=== PATIENT | female | born 1945 | race Caucasian/White ===

== ENCOUNTER 2020-04-07 14:22 | Inpatient (IN) | payer OTHER ==
--- OUTSIDE RECORDS SUMMARY | 2020-04-07 15:10 | XMS REPORT | Clinical Summary ---
:1945 Author Organization [facility] Address [address] [place] [address] Care Team Providers Name Role Phone Terese Zhou MD Primary Care Provider oDris Terrazas Corn Husker Allergies No Known Allergies Medications Medication Sig Dispensed Refills Start Date End Date Status cholecalciferol (VITAMIN Take by mouth 0 Active D3) 400 unit Tab tablet daily. metFORMIN (GLUCOPHAGE) Take 1,000 mg by 0 Active 500 MG tablet mouth daily with breakfast. furosemide (LASIX) 40 MG Take 40 mg by 0 Active tablet mouth daily. fLUoxetine (PROZAC) 20 Take 20 mg by 0 Active MG capsule mouth daily. amLODIPine (NORVASC) 10 Take 10 mg by 0 Active MG tablet mouth daily. benazepril (LOTENSIN) 40 Take 40 mg by 0 Active MG tablet mouth daily. levothyroxine Take 125 mcg by 0 Active (SYNTHROID, LEVOTHROID) mouth Every 125 MCG tablet morning on an empty stomach. spironolactone Take 25 mg by 0 A ctive (ALDACTONE) 25 MG tablet mouth daily. Active Problems Problem Noted Date Pneumonia due to other gram-negative bacteria 11/08/19 18 Social History Tobacco Use Types Packs/Day Years Used Date Current Every Day Smoker 1 50 Smokeless Tobacco: Current User Alcohol Use Drinks/Week oz/Week Comments No Sex Assigned at Date Recorded Not on file Last Filed Vital Signs Not on file Plan of Treatment Not on file Results Not on fileafter 04/07/2019 Insurance Payer Benefit Plan / Subscriber ID Effective Dates Phone Addre ss Type Group [employer] HMO [id number] 2008-Lashaun Ruiz Contracted ALL t Advance Directives For more information, please contact: [phone] Code Status Date Activated Date Inactivated Comments Full Code 11/07/2017 4:37 PM 11/10/2017 6:21 PM This code status was determined by: Patient
--- OUTSIDE RECORDS SUMMARY | 2020-04-07 15:11 | XMS REPORT | Continuity of Care Document ---
:1945 Author Organization [facility] t Address [address] [place] [address] Care Team Providers Name Role Phone Bridget Unger MD Primary Care Physician BRIDGET UNGER Attending Clinician Unavailable BRIDGET UNGER Admitting Clinician Unavailable Problems Condition Condition Condition Status Onset Resolution Last Treating Co mments Source Name Details Category Date Date Treatment Clinician Date Pneumonia Pneumonia Disease Active [facility] St due to due to 11[facility]07 [facility] - other other 00:00: Medical gram-negat gram-negat 00 Ce nter von von bacteria bacteria Allergies, Adverse Reactions, Alerts This patient has no known allergies or adverse reactions. Social History Social Habit Start Date Stop Date Quantity Comments Source Sex Assigned At [facility] Cigarettes smoked 2017-11-07 2017-11-[address] [facility] St [place] - current (pack per 00:00:00 00:00:00 [facility] Center day) - Reported Cigarette 2017-11-07 2017-11-[address] [facility] St [place] - pack-years 00:00:00 00:00:[address] [facility] Tobacco use and 2017-11-07 2017-11-[address] [facility] St [place] - exposure 00:00:00 00:00:00 [facility] Center Alcohol intake 2017-11-07 2017-11-[address] [facility] St [place] - 00:00:00 00:00:00 non-drinker of Medical Ce nter alcohol (finding) Smoking Status Start Date Stop Date Source Current every day smoker 2017-11-07 00:00:[address] [facility] Medications Ordered Filled Start Stop Current Ordering Indication Dosage Frequency Signature Comments Components Source Medication Medication Date Date Medication? Clinician (SIG) Name Name cholecalcif 0 Yes QD Take by [facility] 5-17 [facility] - (VITAMIN 16:21: daily. Medical D3) 400 44 Center unit Tab tablet metFORMIN Yes 1000mg Take 1,[address] (GLUCOPHAGE 5-17 mg by [facility] - ) 500 MG 16:21: mouth Medical tablet 44 daily with Center breakfast. furosemide 20180 Yes 40mg QD Take [address] (LASIX) 40 5-17 by mouth [facility] - MG tablet 16:21: daily. Medica l 44 Center fLUoxetine Yes 20mg QD Take [address] (PROZAC) 20 5-17 by mouth [facility] - MG capsule 16:21: daily. Medic al 44 Center amLODIPine Yes 10mg QD Take [address] (NORVASC) 5-17 by mouth [facility] - 10 MG 16:21: daily. Medical tablet 44 Center benazepril Yes 40mg QD Take [address] (LOTENSIN) 5-17 by mouth [facility] - 40 MG 16:21: daily. Medical tablet 44 Center levothyroxi 0 Yes 125ug Take [address] ne 5-17 mcg by [facility] - (SYNTHROID, 16:21: mouth Medic al LEVOTHROID) 44 Every Center 125 MCG morning on tablet an empty stomach. spironolact Yes 25mg QD Take [address] one 5-17 by mouth [facility] - (ALDACTONE) 16:21: daily. Medi kamron 25 MG 44 Center tablet Procedures This patient has no known procedures. Results Test Description Test Time Test Comments Results Result Comments Source BLOOD CULTURE 2017-11-13 01:00:00 Test Item Value Reference Range Interpretation Comme nts CULTURE (BEAKER) (test code = 1095) No growth in 5 days BLOOD [id number] 19:00:00 Test Item Value Reference Range Interpretation Comments CULTURE (BEAKER) (test No growth in 5 days code = 1095) CT, [id number] 16:07:00FINAL REPORT DOSE REDUCTION: The examination was performed according to departmental dose- optimization program which includes automated exposure control, adjustment of the mA and/or kV according to patient size and/or use of iterative reconstruction technique. TECHNIQUE: Adrenalprotocol CT of the abdomen with and without intravenous contrast. Pelvis CT with contrast. COMPARISON: None Discussion: There is a trace right pleural effusion, and a small left pleural effusion. There is lower lobe consolidation/atelectasis. A subcentimeter hypodensity left hepatic lobe is too smallto characterize. No suspicious liver lesion. Spleen and pancreas appear unremarkable. Status post cholecystectomy. No biliary ductal dilatation. There is a 5.5 x 6.0 cm left renal cyst. There are additional bilateral small renal hypodensities, some are simple cysts, others are too small to characterize. There is a right adrenal gland mass measuring 1.6 x 3.4 cm, and the left adrenal gland mass measuring 3.8 x 2.6 cm. Both demonstrate density measurements less than 0 on the precontrast images. Postco ntrast there is enhancement and on the delayed 10 minute images there is washout. Appearance is mostconsistent with benign adenomata. There is colonic diverticulosis. No findings of diverticulitis. Otherwise small bowel and colon appear unremarkable. The appendix is not well visualized. However thereis no inflammatory stranding or fluid collection in the right lower quadrant to suggest the presence of appendicitis. No free fluid or abnormal lymphadenopathy. Aorta and IVC are normal in caliber. Vascular calcifications are seen. There is a fat-containing focal hernia. The bladder, uterus and bilateral adnexa are unremarkable. There is mild soft tissue anasarca. No acute skeletal abnormality. Degenerative changes along the spine seen. IMPRESSION: 1. Bilateral adrenal gland masses, CT characteristics are most consistent with benign adenomata. 2. Left renal cyst. Additional bilateral renal hypodensities, some are cysts others are too small to characterize. Hypodensity left hepatic lobe, too small to characterize. 3. Colonic diverticulosis without findings of diverticulitis. 4. Small left pleural effusion, and trace right pleural effusion. Bilateral lower lobe atelectasis. Mild soft tissue anasarca. Signed: Jean-Claude Harvey MDReport Verified Date/Time: 11/10/2017 16:07:15 Reading Location: [facility] Radiology Reading Room RAD, CHEST, 1 VIEW, NON [id number] 13:13:00Reason for exam:->PNEUMONIAShould this be performed at the bedside?->YesFINAL REPORT TECHNIQUE: Single view of the chest. COMPARISON: 11/07/2017 FINDINGS: The cardiac silhouette is prominent. Aortic calcifications are seen. Blunting of the left costophrenic sulcus may be due to trace pleural effusion. Otherwise lungs are clear. No acute skeletal abnormality. Soft tissues appear unremarkable. Signed: Jean-Claude Harvey MDReport Verified Date/Time: 11/10/2017 13:13:21 Reading Location: [facility] Radiology Reading Room POCT- GLUCOSE [id number] 12:39:00 Test Item Value Reference Range Interpretation Comments POC-GLUCOSE METER 174 mg/dL 70-110 H TESTED AT [address] ([facility]) (test code [facility] [place] = 1538) [id number] BASIC METABOLIC [id number] 12:16:00 Test Item Value Reference Range Interpretation Comments SODIUM (BEAKER) 140 meq/L 135-148 (test code = 381) POTASSIUM (BEAKER) 4.9 meq/L 3.6-5.5 Specimen slightly (test code = 379) hemolyzed CHLORIDE (BEAKER) 104 meq/L 98-106 (test code = 382) CO2 (BEAKER) (test 28 meq/L 20-29 code = 355) BLOOD UREA NITROGEN 24 mg/dL 10-26 (BEAKER) (test code = 354) CREATININE (BEAKER) 0.99 mg/dL 0.50-1.20 Specimen slightly (test code = 358) hemolyzed GLUCOSE RANDOM 172 mg/dL 70-110 H (BEAKER) (test code = 652) CALCIUM (BEAKER) 9.3 mg/dL 8.5-10.5 (test code = 697) EGFR (BEAKER) (test 55 mL/min/1.73 ESTIMA BANDAR GFR IS code = 1092) sq m NOT ACCURATE CREATININE CLEARANCE IN PREDICTING GLOMERULAR FILTRATION RATE . ESTIMATED GFR I S NOT APPLICABLE FOR DIALYSIS PATIEN TS. [id number] 12:10:00 Test Item Value Reference Range Interpretation Comments MAGNESIUM (BEAKER) 2.1 mg/dL 1.5-3.0 Specimen slightly (test code = 627) hemolyzed CBC W/PLT COUNT & AUTO [id number] 12:06:00 Test Item Value Reference Range Interpretation Comments WHITE BLOOD CELL COUNT (BEAKER) 12.3 K/ L 4.0-10.0 H (test code = 775) RED BLOOD CELL COUNT (BEAKER) 4.42 M/ L 4.00-5.00 (test code = 761) HEMOGLOBIN (BEAKER) (test code = 13.3 GM/DL 12.0-15.0 410) HEMATOCRIT (BEAKER) (test code = 41.5 % 36.0-45.0 411) MEAN CORPUSCULAR VOLUME (BEAKER) 93.9 fL 82.0-99.0 (test code = 753) MEAN CORPUSCULAR HEMOGLOBIN 30.1 pg 27.0-33.0 (BEAKER) (test code = 751) MEAN CORPUSCULAR HEMOGLOBIN CONC 32.0 GM/DL 32.0-36.0 (BEAKER) (test code = 752) RED CELL DISTRIBUTION WIDTH 15.1 % 10.3-14.2 H (BEAKER) (test code = 412) PLATELET COUNT (BEAKER) (test 313 K/CU MM 150-430 code = 756) MEAN PLATELET VOLUME (BEAKER) 9.0 fL 6.5-10.5 (test code = 754) NUCLEATED RED BLOOD CELLS 0 /100 WBC 0-0 (BEAKER) (test code = 413) NEUTROPHILS RELATIVE PERCENT 91 % (BEAKER) (test code = 429) LYMPHOCYTES RELATIVE PERCENT 5 % (BEAKER) (test code = 430) MONOCYTES RELATIVE PERCENT 4 % (BEAKER) (test code = 431) EOSINOPHILS RELATIVE PERCENT 0 % (BEAKER) (test code = 432) BASOPHILS RELATIVE PERCENT 0 % (BEAKER) (test code = 437) NEUTROPHILS ABSOLUTE COUNT 11.20 K/ L 1.80-8.00 H (BEAKER) (test code = 670) LYMPHOCYTES ABSOLUTE COUNT 0.60 K/ L 1.48-4.50 L (BEAKER) (test code = 414) MONOCYTES ABSOLUTE COUNT (BEAKER) 0.50 K/ L 0.00-1.30 (test code = 415) EOSINOPHILS ABSOLUTE COUNT 0.00 K/ L 0.00-0.50 (BEAKER) (test code = 416) BASOPHILS ABSOLUTE COUNT (BEAKER) 0.00 K/ L 0.00-0.20 (test code = 417) SPUTUM CULTURE + GRAM [id number] 09:29:00 Test Item Value Reference Interpretation Comments Range CULTURE (BEAKER) STAPHYLOCOCCUS A <1+ Staph ylococcus (test code = 1095) AUREUS aureus Ciprofloxacin (test S code = 7) Clindamycin (test S code = 10) Daptomycin (test code S = 59) Erythromycin (test S code = 4) Gentamicin (test code S = 18) Levofloxacin (test S code = 22) Linezolid (test code S = 40) Moxifloxacin (test S code = 36) Nitrofurantoin (test S code = 23) Oxacillin (test code S = 14) Rifampin (test code = S 43) Tetracycline (test S code = 2) Tigecycline (test S code = 133) Trimethoprim + S Sulfamethoxazole (test code = 47) Vancomycin (test code S = 13) GRAM STAIN RESULT 1+ White blood (BEAKER) (test code = cells seen 1123) GRAM STAIN RESULT <1+ epithelial (BEAKER) (test code = cells 454738) GRAM STAIN RESULT <1+ gram positive (BEAKER) (test code = cocci 496462) GRAM STAIN RESULT <1+ gram positive (BEAKER) (test code = rods 013333) 4+ Normal respiratory clif presentPOCT-GLUCOSE [id number] 06:01:00 Test Item Value Reference Range Interpretation Comments POC-GLUCOSE METER 139 mg/dL 70-110 H TEST[facility] AT [address] [facility] (test code [facility] [place] = 1538) [id number] POCT-GLUCOSE [id number] 20:38:00 Test Item Value Reference Range Interpretation Comments POC-GLUCOSE METER 275 mg/dL 70-110 H TEST[facility] AT [address] [facility] (test code [facility] [place] = 1538) [id number] POCT-GLUCOSE [id number] 16:32:00 Test Item Value Reference Range Interpretation Comments POC-GLUCOSE METER 220 mg/dL 70-110 H TESTED AT [address] ([facility]) (test code [facility] [place] = 1538) [id number] POCT-GLUCOSE [id number] 12:24:00 Test Item Value Reference Range Interpretation Comments POC-GLUCOSE METER 318 mg/dL 70-110 H TESTED AT [address] ([facility]) (test code [facility] [place] = 1538) [id number] POCT-GLUCOSE [id number] 07:27:00 Test Item Value Reference Range Interpretation Comments POC-GLUCOSE METER 169 mg/dL 70-110 H TESTED AT [address] ([facility]) (test code [facility] [place] = 1538) [id number] POCT-GLUCOSE [id number] 07:27:00 Test Item Value Reference Range Interpretation Comments POC-GLUCOSE METER 167 mg/dL 70-110 H TESTED AT [address] ([facility]) (test code [facility] [place] = 1538) [id number] POCT-GLUCOSE [id number] 22:49:00 Test Item Value Reference Range Interpretation Comments POC-GLUCOSE METER 274 mg/dL 70-110 H TESTED AT [address] ([facility]) (test code [facility] [place] = 1538) [id number] POCT-GLUCOSE [id number] 17:18:00 Test Item Value Reference Range Interpretation Comments POC-GLUCOSE METER 237 mg/dL 70-110 H TESTED AT [address] ([facility]) (test code [facility] [place] = 1538) [address] POCT-GLUCOSE [id number] 12:36:00 Test Item Value Reference Range Interpretation Comments POC-GLUCOSE METER 258 mg/dL 70-110 H TESTED AT [address] ([facility]) (test code [facility] [place] = 1538) [id number] TROPONIN [id number] 06:00:00 Test Item Value Reference Range Interpretation Comments TROPONIN I ([facility]) (test code = 397) < ng/mL 0.00-0.15 Troponin I (TnI) levels must be interpreted in the context of the presenting symptoms and the clinical findings. Elevated TnI levels indicate myocardial damage, but are not specific for ischemic heart disease. Elevated TnI levels are seen in patients with other cardiac conditions (including myocarditis and congestive heart failure), and slight TnI elevations occur in patients with other conditions, including sepsis, renal failure, acidosis, acute neurological disease, and persistent tachyarrhythmia.POCT-GLUCOSE [id number] 05:59:00 Test Item Value Reference Range Interpretation Comments POC-GLUCOSE METER 190 mg/dL 70-110 H TESTED AT [address] (BEAKER) (test code [facility] [place] = 1538) [id number] COMPREHENSIVE METABOLIC [id number] 05:51:00 Test Item Value Reference Range Interpretation Comments TOTAL PROTEIN 6.7 gm/dL 6.0-8.5 (BEAKER) (test code = 770) ALBUMIN (BEAKER) 3.4 g/dL 3.5-5.0 L (test code = 1145) ALKALINE PHOSPHATASE 70 U/L 30-115 (BEAKER) (test code = 346) BILIRUBIN TOTAL 0.2 mg/dL 0.1-1.2 (BEAKER) (test code = 377) SODIUM (BEAKER) (test 139 meq/L 135-148 code = 381) POTASSIUM (BEAKER) 5.4 meq/L 3.6-5.5 (test code = 379) CHLORIDE (BEAKER) 99 meq/L 98-106 (test code = 382) CO2 (BEAKER) (test 31 meq/L 20-29 H code = 355) BLOOD UREA NITROGEN 27 mg/dL 10-26 H (BEAKER) (test code = 354) CREATININE (BEAKER) 1.05 mg/dL 0.50-1.20 (test code = 358) GLUCOSE RANDOM 183 mg/dL 70-110 H (BEAKER) (test code = 652) CALCIUM (BEAKER) 9.3 mg/dL 8.5-10.5 (test code = 697) AST (SGOT) (BEAKER) 14 U/L 5-40 (test code = 353) ALT (SGPT) (BEAKER) 12 U/L 5-50 (test code = 347) EGFR (BEAKER) (test 52 mL/min/1.73 ESTIMA BANDAR GFR IS code = 1092) sq m NOT ACCURATE CREATININE CLEARANCE IN PREDICTING GLOMERULAR FILTRATION RATE . ESTIMATED GFR I S NOT APPLICABLE FOR DIALYSIS PATIEN TS. [id number] 05:42:00 Test Item Value Reference Range Interpretation Comments MAGNESIUM (BEAKER) (test code = 1.9 mg/dL 1.5-3.0 627) CBC W/PLT COUNT & AUTO [id number] 05:36:00 Test Item Value Reference Range Interpretation Comments WHITE BLOOD CELL COUNT (BEAKER) 9.6 K/ L 4.0-10.0 (test code = 775) RED BLOOD CELL COUNT (BEAKER) 4.08 M/ L 4.00-5.00 (test code = 761) HEMOGLOBIN (BEAKER) (test code = 12.4 GM/DL 12.0-15.0 410) HEMATOCRIT (BEAKER) (test code = 38.6 % 36.0-45.0 411) MEAN CORPUSCULAR VOLUME (BEAKER) 94.6 fL 82.0-99.0 (test code = 753) MEAN CORPUSCULAR HEMOGLOBIN 30.4 pg 27.0-33.0 (BEAKER) (test code = 751) MEAN CORPUSCULAR HEMOGLOBIN CONC 32.1 GM/DL 32.0-36.0 (BEAKER) (test code = 752) RED CELL DISTRIBUTION WIDTH 14.2 % 10.3-14.2 (BEAKER) (test code = 412) PLATELET COUNT (BEAKER) (test 279 K/CU MM 150-430 code = 756) MEAN PLATELET VOLUME (BEAKER) 9.5 fL 6.5-10.5 (test code = 754) NUCLEATED RED BLOOD CELLS 0 /100 WBC 0-0 (BEAKER) (test code = 413) NEUTROPHILS RELATIVE PERCENT 90 % (BEAKER) (test code = 429) LYMPHOCYTES RELATIVE PERCENT 10 % (BEAKER) (test code = 430) MONOCYTES RELATIVE PERCENT 1 % (BEAKER) (test code = 431) EOSINOPHILS RELATIVE PERCENT 0 % (BEAKER) (test code = 432) BASOPHILS RELATIVE PERCENT 0 % (BEAKER) (test code = 437) NEUTROPHILS ABSOLUTE COUNT 8.60 K/ L 1.80-8.00 H (BEAKER) (test code = 670) LYMPHOCYTES ABSOLUTE COUNT 0.90 K/ L 1.48-4.50 L (BEAKER) (test code = 414) MONOCYTES ABSOLUTE COUNT (BEAKER) 0.10 K/ L 0.00-1.30 (test code = 415) EOSINOPHILS ABSOLUTE COUNT 0.00 K/ L 0.00-0.50 (BEAKER) (test code = 416) BASOPHILS ABSOLUTE COUNT ([facility]) 0.00 K/ L 0.00-0.20 (test code = 417) POCT-GLUCOSE [id number] 20:41:00 Test Item Value Reference Range Interpretation Comments POC-GLUCOSE METER 216 mg/dL 70-110 H TESTED AT [facility] ([facility]) (test code [facility] [place] = 1538) [id number] POCT-GLUCOSE [id number] 19:07:00 Test Item Value Reference Range Interpretation Comments POC-GLUCOSE METER 121 mg/dL 70-110 H TESTED AT [facility] [address] ([facility]) (test code [facility] [place] = 1538) [id number] TROPONIN [id number] 18:39:00 Test Item Value Reference Range Interpretation Comments TROPONIN I ([facility]) (test code = 397) < ng/mL 0.00-0.15 Troponin I (TnI) levels must be interpreted in the context of the presenting symptoms and the clinical findings. Elevated TnI levels indicate myocardial damage, but are not specific for ischemic heart disease. Elevated TnI levels are seen in patients with other cardiac conditions (including myocarditis and congestive heart failure), and slight TnI elevations occur in patients with other conditions, including sepsis, renal failure, acidosis, acute neurological disease, and persistent tachyarrhythmia.LIPID [id number] 18:29:00 Test Item Value Reference Range Interpretation Comments TRIGLYCERIDES (BEAKER) (test code = 108 mg/dL 540) CHOLESTEROL (AKER) (test code = 198 mg/dL 631) HDL CHOLESTEROL (AKER) (test code 51 mg/dL = 976) LDL CHOLESTEROL CALCULATED ([facility]) 125 mg/dL (test code = 633) Triglyceride Reference Range: Low Risk <150 Borderline 150-199 High Risk 200-499 Very High Risk >=500Cholesterol Reference Range: Low Risk <200 Borderline 200-239 High Risk >240HDL Cholesterol Reference Range: Low Risk >=60 High Risk <40LDL Cholesterol Reference Range: Optimal <100 Near Optimal 100-129 Borderline 130-159 High 160-189 Very High >=190COMPREHENSIVE METABOLIC [id number] 18:22:00 Test Item Value Reference Range Interpretation Comments TOTAL PROTEIN 7.7 gm/dL 6.0-8.5 (BEAKER) (test code = 770) ALBUMIN (BEAKER) 3.8 g/dL 3.5-5.0 (test code = 1145) ALKALINE PHOSPHATASE 82 U/L 30-115 (BEAKER) (test code = 346) BILIRUBIN TOTAL 0.3 mg/dL 0.1-1.2 (BEAKER) (test code = 377) SODIUM (BEAKER) (test 140 meq/L 135-148 code = 381) POTASSIUM (BEAKER) 5.0 meq/L 3.6-5.5 (test code = 379) CHLORIDE (BEAKER) 97 meq/L 98-106 L (test code = 382) CO2 (BEAKER) (test 33 meq/L 20-29 H code = 355) BLOOD UREA NITROGEN 27 mg/dL 10-26 H (BEAKER) (test code = 354) CREATININE (BEAKER) 1.14 mg/dL 0.50-1.20 (test code = 358) GLUCOSE RANDOM 98 mg/dL 70-110 (BEAKER) (test code = 652) CALCIUM (BEAKER) 9.8 mg/dL 8.5-10.5 (test code = 697) AST (SGOT) (BEAKER) 12 U/L 5-40 (test code = 353) ALT (SGPT) (BEAKER) 9 U/L 5-50 (test code = 347) EGFR (BEAKER) (test 47 mL/min/1.73 ESTIMA BANDAR GFR IS code = 1092) sq m NOT ACCURATE CREATININE CLEARANCE IN PREDICTING GLOMERULAR FILTRATION RATE . ESTIMATED GFR I S NOT APPLICABLE FOR DIALYSIS PATIEN TS. [id number] 18:14:00 Test Item Value Reference Range Interpretation Comments MAGNESIUM (BEAKER) (test code = 2.0 mg/dL 1.5-3.0 627) URINALYSIS W/ [id number] 18:13:00 Test Item Value Reference Range Interpretation Comments COLOR (BEAKER) (test code = 470) Yellow CLARITY (BEAKER) (test code = 469) Clear SPECIFIC GRAVITY UA (BEAKER) (test 1.015 1.001-1.035 code = 468) PH UA (BEAKER) (test code = 467) 5.5 5.0-8.0 PROTEIN UA (BEAKER) (test code = Negative Negative 464) GLUCOSE UA (BEAKER) (test code = Negative Negative 365) KETONES UA (BEAKER) (test code = Negative Negative 371) BILIRUBIN UA (BEAKER) (test code = Negative Negative 462) BLOOD UA (BEAKER) (test code = Trace Negative A 461) NITRITE UA (BEAKER) (test code = Negative Negative 465) LEUKOCYTE ESTERASE UA (BEAKER) Trace Negative A (test code = 466) UROBILINOGEN UA (BEAKER) (test 0.2 mg/dL 0.2-1.0 code = 463) BACTERIA (BEAKER) (test code = Occasional 517) RBC UA-MANUAL (BEAKER) (test code 5-10 /HPF = 1659) WBC UA-MANUAL (BEAKER) (test code 10-20 /HPF = 1661) SQUAMOUS EPITHELIAL MANUAL 5-10 /HPF (BEAKER) (test code = 1663) SOURCE(BEAKER) (test code = 2795) HEMOGLOBIN [id number] 18:09:00 Test Item Value Reference Range Interpretation Comments HEMOGLOBIN A1C (BEAKER) (test code = 5.5 % 4.3-6.1 368) CBC W/PLT COUNT & AUTO [id number] 18:00:00 Test Item Value Reference Range Interpretation Comments WHITE BLOOD CELL COUNT (BEAKER) 10.7 K/ L 4.0-10.0 H (test code = 775) RED BLOOD CELL COUNT (BEAKER) 4.41 M/ L 4.00-5.00 (test code = 761) HEMOGLOBIN (BEAKER) (test code = 13.2 GM/DL 12.0-15.0 410) HEMATOCRIT (BEAKER) (test code = 41.5 % 36.0-45.0 411) MEAN CORPUSCULAR VOLUME (BEAKER) 94.2 fL 82.0-99.0 (test code = 753) MEAN CORPUSCULAR HEMOGLOBIN 30.0 pg 27.0-33.0 (BEAKER) (test code = 751) MEAN CORPUSCULAR HEMOGLOBIN CONC 31.9 GM/DL 32.0-36.0 L (BEAKER) (test code = 752) RED CELL DISTRIBUTION WIDTH 14.1 % 10.3-14.2 (BEAKER) (test code = 412) PLATELET COUNT (BEAKER) (test 290 K/CU MM 150-430 code = 756) MEAN PLATELET VOLUME (BEAKER) 9.1 fL 6.5-10.5 (test code = 754) NUCLEATED RED BLOOD CELLS 0 /100 WBC 0-0 (BEAKER) (test code = 413) NEUTROPHILS RELATIVE PERCENT 85 % (BEAKER) (test code = 429) LYMPHOCYTES RELATIVE PERCENT 12 % (BEAKER) (test code = 430) MONOCYTES RELATIVE PERCENT 3 % (BEAKER) (test code = 431) EOSINOPHILS RELATIVE PERCENT 0 % (BEAKER) (test code = 432) BASOPHILS RELATIVE PERCENT 0 % (BEAKER) (test code = 437) NEUTROPHILS ABSOLUTE COUNT 9.10 K/ L 1.80-8.00 H (BEAKER) (test code = 670) LYMPHOCYTES ABSOLUTE COUNT 1.30 K/ L 1.48-4.50 L (BEAKER) (test code = 414) MONOCYTES ABSOLUTE COUNT (BEAKER) 0.40 K/ L 0.00-1.30 (test code = 415) EOSINOPHILS ABSOLUTE COUNT 0.00 K/ L 0.00-0.50 (BEAKER) (test code = 416) BASOPHILS ABSOLUTE COUNT (BEAKER) 0.00 K/ L 0.00-0.20 (test code = 417) BLOOD GAS, [id number] 17:37:00 Test Item Value Reference Range Interpretation Comments PH ARTERIAL (BEAKER) (test code = 7.38 7.35-7.45 383) PCO2 ARTERIAL (BEAKER) (test code 56 mmHg 35-45 H = 384) PO2 ARTERIAL (BEAKER) (test code = 38 mmHg 80-90 LL 385) O2 SATURATION ARTERIAL (BEAKER) 70.2 % 96.0-97.0 L (test code = 386) HCO3 ARTERIAL (BEAKER) (test code 32 mmol/L 21-29 H = 388) BASE EXCESS ARTERIAL (BEAKER) 5.5 mmol/L -2.0-3.0 H (test code = 387) PATIENT TEMPERATURE (BEAKER) (test 37.0 C code = 1818) FIO2 (BEAKER) (test code = 1819) 21.0 % RAD, CHEST, 1 VIEW, NON [id number] 17:11:00Reason for exam:- >pneumoniaShould this be performed at the bedside?->YesFINAL REPORT INDICATION: pneumonia COMPARISON: None. TECHNIQUE: Chest radiograph, single view, portable technique. FINDINGS / IMPRESSION: No discrete pneumonia is demonstrated. There is mild enlargement of the heart shadow and questionable pulmonary venous congestion without overt pulmonary edema. No pneumothorax or pleural effusion demonstrated. Osseous structures unremarkable. Signed: Jyoti Lord MDReport Verified Date/Time: 11/07/2017 17:11:58 Reading Location: [facility] Reading Room
[2020-04-07] MEDS ORDERED: IPRATROPIUM BROM 0.5MG/2.5ML NEB PRN (15:45)
[2020-04-07] MEDS ORDERED: ONDANSETRON 4 MG/2 ML VIAL IV PRN (15:45)
[2020-04-07] MEDS ORDERED: ACETAMINOPHEN 500 MG TAB PO PRN (15:45)
[2020-04-07] MEDS ORDERED: ALBUTEROL 2.5 MG/3 ML NEB SOL NEB PRN (15:45)
[2020-04-07 16:13] LABS: Absolute Lymphocytes (CBC) 0.5 K/uL (0.7-4.9); Basophils % 0.4 % (0-1.3); Hematocrit 37.5 % (36.0-45.0); MPV 9.2 fL (7.6-11.3); RBC Red Blood Cell Count 4.03 M/uL (3.86-4.86)
--- NOTE | 2020-04-07 16:13 | P.HP ---
Certification for Inpatient Patient admitted to: Inpatient With expected LOS: >2 Midnights Patient will require the following post-hospital care: Home Health Services Practitioner: I am a practitioner with admitting privileges, knowledge of patient current condition, hospital course, and medical plan of care. Services: Services provided to patient in accordance with Admission requirements found in Title 42 Section 412.3 of the Code of Federal Regulations Patient History Date of Service: 04/07/20 Primary Care Provider: Dr. Nelson; Pulmonary-Dr. Schofield Reason for admission: Hospital transfer for higher level of care. History of Present Illness: 74-year-old female with history of COPD, CHF, and hypothyroidism. Patient was a transfer from [facility] for high-level of care. Patient was admitted at their facility on 04/05/2020 due to increasing shortness of breath. She was found to have elevated BNP, pulmonary edema noted on chest x- ray, and elevated CO2 level. The patient was tachypneic with a respiratory rate of 22-28. Patient was on 5 L per nasal cannula. Initial ABG showed a CO2 of 105 and a PO2 of 93 with a bicarb of 41. White count within normal range. Patient was slightly anemic. The patient was admitted to the facility. Patient was treated. Patient's respiratory status declined. Due to her elevated CO2, the hospitalist there spoke to pulmonology. Pulmonology recommended the patient be transferred for high-level of care requiring BiPAP to help with her CO2 retention. The patient was accepted. When I saw the patient in the room, patient appeared stable. She was on nasal cannula. It appears that her breathing has significantly improved. Patient was diuresed at the other facility. Repeat CBC, ABG, chest x-ray pending at this time. Allergies No Known Allergies Allergy (Verified 09/30/15 20:48) Home Medications: Amlodipine [Norvasc*] 10 mg PO DAILY 10/01/15 Benazepril HCl [Lotensin] 40 mg PO DAILY 10/01/15 Fluoxetine HCl [Prozac*] 20 mg PO DAILY 10/01/15 Gabapentin [Neurontin*] 400 mg PO TID 10/01/15 Hydrocodone Bit/Acetaminophen [Hydrocodon-Acetaminoph 7.5-325] 1 each PO Q8H PRN 10/01/15 Levothyroxine [Synthroid*] 175 mcg PO [id number] 10/01/15 Potassium Chloride [K-Dur] 10 meq PO ONCE 10/01/15 Fluticasone/Salmeterol [Advair 250/50 Diskus] 1 puff IH BID #1 disk 10/05/15 Furosemide [Lasix*] 40 mg PO DAILY #30 tab 10/05/15 Tiotropium [place] [Spiriva Respimat] 4 gm IH DAILY #1 mist.inhal 10/05/15 acetaZOLAMIDE [Diamox*] 125 mg PO BID #60 tab 10/05/15 levoFLOXacin [Levaquin*] 500 mg PO DAILY #14 tab 10/05/15 predniSONE [Prednisone*] 40 mg PO [id number] #20 tab 10/05/15 - Past Medical/Surgical History Diabetic: Yes -: Hypertension -: CHF likely diastolic -: Hypothyroidism -: COPD, oxygen dependent -: Depression -: Obstructive sleep apnea -: Tubal ligation -: Appendectomy -: Cholecystectomy Psychosocial/ Personal History: Patient lives at home. - Family History Father -: Heart disease Notes: father of massive heart attack per patient reprt motherr -: Stroke Notes: mother of stroke - Social History Smoking Status: Unknown if ever smoked Alcohol use: No CD- Drugs: No Caffeine use: Yes Place of Residence: Home Review of Systems General: Weakness, Malaise, As per HPI Eyes: Unremarkable ENT: Unremarkable Respiratory: Shortness of Breath, SOB with Excertion, As per HPI Cardiovascular: Unremarkable Gastrointestinal: Unremarkable Genitourinary: Unremarkable Musculoskeletal: Unremarkable Integumentary: Unremarkable Neurological: Unremarkable Lymphatics: Unremarkable Physical Examination - Physical Exam General: Alert, In no apparent distress, Oriented x3, Cooperative HEENT: Atraumatic, Normocephalic Neck: Supple Respiratory: Diminished (Decreased breath sounds bilateral), Expiratory wheezes (Occasional wheezing) Cardiovascular: Normal pulses, Regular rate/rhythm Gastrointestinal: Normal bowel sounds, Soft and benign, Non-distended, No tenderness, No masses, No rebound, No guarding Musculoskeletal: No erythema, No tenderness, No warmth Integumentary: No tenderness/swelling, No erythema, No warmth, No cyanosis Neurological: Normal speech, Normal strength at 5/5 x4 extr, Normal tone, Normal affect Assessment and Plan - Plan Impression: Acute on chronic respiratory failure with hypoxia and hypercapnia secondary to COPD exacerbation complicated with acute on chronic diastolic CHF Hypertension Hypothyroidism Obstructive sleep apnea Depression Plan: Acute on chronic respiratory failure with hypoxia and hypercapnia secondary to COPD exacerbation complicated with acute on chronic diastolic CHF: Patient was transferred from [facility] due to worsening shortness of breath. COVID test was negative there, done 04/04/2020. Patient required high-level care including possible BiPAP. Was obtain CBC, BMP, cardiac enzyme, ABG, and chest x-ray and echocardiogram. Will continue with oxygen to maintain sats above 90%. Patient may require BiPAP. Will start Diamox due to CO2 retention. Will provide COPD medication. Will continue with prednisone 10 mg 1 pill twice daily[address] Will place on a 1500 cc per day fluid restriction. Pulmonology has been consulted. Await further recommendation. Will have physical therapy assess ambulation. Advanced care planning addressed in detail. Advanced directives also addressed. Patient is do not resuscitate. Patient would benefit with home health and physical therapy at discharge. Anticipate possible discharge in the next 72 hr. Hypertension: Restart Norvasc and benazepril. Hypothyroidism: Restart levothyroxine. Will check tsh and free T4. Obstructive sleep apnea: Patient may require BiPAP at night. Depression: Continue with home medication. Discharge Plan: Home Plan to discharge in: 72 Hours - Advance Directives Does patient have a Living Will: No Does patient have a Durable POA for Healthcare: No - Code Status/Comfort Care Code Status Assessed: Yes (Patient is do not resuscitate) Time Spent Managing Pts Care (In Minutes): 55
[2020-04-07 16:21] LABS: Protime INR 1.05
[2020-04-07 16:29] VITALS: BMI 29.6
[2020-04-07] MEDS: INSULIN -REGULAR HUMAN 50 UNIT/0.5 ML ML SQ SCH ×2 (16:30→21:52)
--- NOTE | 2020-04-07 16:45 | RAD REPORT ---
EXAM DESCRIPTION: RAD - Chest Single View - 04/07/2020 4:34 pm CLINICAL HISTORY: COPD/CHF exacerbation Chest pain. COMPARISON: Chest Single View dated 10/01/2015; Chest Single View dated 09/30/2015; CHEST SINGLE VIEW da nan 02/14/2010; CHEST PA AND LAT 2 VIEW dated 05/21/2008 FINDINGS: Portable technique limits examination quality. The lungs are grossly clear. The heart is normal in size. Small right pleural effusion.
--- NOTE | 2020-04-07 17:07 | P.CNS ---
Date of Consult: 04/07/20 Primary Care Provider: Dr. Nelson; Pulmonary-Dr. Schofield Chief Complaint: SOB History of Present Illness: PT is 74 yrs of age heavy active smoker Tx from [facility] for COPD exacerbation. No BD at home using O2. doing well. hypoxic and hypercarbic with sig elevated bicarb OA Allergies No Known Allergies Allergy (Verified 09/30/15 20:48) Home Medications: Amlodipine [Norvasc*] 10 mg PO DAILY 10/01/15 Benazepril HCl [Lotensin] 20 mg PO DAILY 10/01/15 Fluoxetine HCl [Prozac*] 20 mg PO DAILY 10/01/15 Levothyroxine [Synthroid*] 175 mcg PO [id number] 10/01/15 Cholecalciferol (Vitamin D3) [Vitamin D 400 IU TAB*] 1 tab PO DAILY 04/07/20 Furosemide [Lasix] 40 mg PO DAILY 04/07/20 Hydrocodone/Acetaminophen [[place] 10-325 Tablet] 1 tab PO DAILY 04/07/20 Spironolactone [Aldactone] 25 mg PO DAILY 04/07/20 - Past Medical/Surgical History Diabetic: Yes -: Hypertension -: CHF likely diastolic -: Hypothyroidism -: COPD, oxygen dependent -: Depression -: Obstructive sleep apnea -: Tubal ligation -: Appendectomy -: Cholecystectomy Psychosocial/ Personal History: Patient lives at home. - Family History Father Medical History: Heart disease Notes: father of massive heart attack per patient reprt motherr Medical History: Stroke Notes: mother of stroke - Social History Smoking Status: Former smoker Alcohol use: No CD- Drugs: No Caffeine use: Yes Place of Residence: Home Review of Systems 10-point ROS is otherwise unremarkable General: Weakness Respiratory: Shortness of Breath Physical Examination General: Alert, In no apparent distress, Oriented x3 Neck: Supple Respiratory: Diminished Cardiovascular: Regular rate/rhythm, Normal S1 S2, Edema Gastrointestinal: Normal bowel sounds, Soft and benign Integumentary: No rashes, No breakdown Laboratory Data (last 24 hrs) 04/07/20 16:01: PT 12.4, INR 1.05 04/07/20 16:01: WBC 6.7, Hgb 11.9 L, Hct 37.5, Plt Count 259 - Problems (1) Respiratory failure with hypoxia and hypercapnia Current Visit: No Status: Acute Plan: Pt is 74 yrs oaf age AW acut on Chronic resp failure. Bicarb elevated. Add IVF. Very stable. IV diamox. Needs to be BD at home. Labs rev Hx of severe OSAOSA Qualifiers: Chronicity: acute on chronic Qualified Code(s): J96.21 - Acute and chronic respiratory failure with hypoxia (2) Sleep apnea Current Visit: Yes Status: Acute Plan: Compliant with CPAP at home
[2020-04-07 17:15] LABS: BUN Blood Urea Nitrogen 34 mg/dL (7-18); CKMB Creatine Kinase MB 1.1 ng/mL (0.3-3.6); Creatine Phosphokinase 58 U/L (26-192); Glucose Level 168 mg/dL (74-106); Potassium 4.5 mmol/L (3.5-5.1); Sodium Level 138 mmol/L (136-145); Troponin I < 0.02 ng/mL (0.0-0.045)
[2020-04-07 17:19] LABS: Bicarbonate > 45 mmol/L (21-32)
[2020-04-07] MEDS: ENOXAPARIN 40 MG/0.4 ML SQ SCH (17:39)
[2020-04-07] MEDS: NACHLORIDE 0.45% 1,000 ML IV SCH (17:39)
[2020-04-07] MEDS ORDERED: INFLUENZA VACCINE (for 3y+) 0.5 ML DOSE IMVAC ONE (18:00)
[2020-04-07] MEDS ORDERED: ACETAZOLAMIDE 500 MG IV IV SCH (18:00)
[2020-04-07] MEDS: ARFORMOTEROL TARTRATE 15 MCG/2 ML VIAL.NEB NEB SCH (19:30)
[2020-04-07] MEDS: predniSONE 10 MG TAB PO SCH (21:52)
[2020-04-07 23:28] LABS: Arterial Blood Carboxyhemoglob 1.2 % (0-1.5); Blood Gas Oxyhemoglobin 93.3 % (94-97); Blood O2 Saturation 95.5 % (92-98.5)
[2020-04-08 04:29] LABS: Absolute Lymphocytes (CBC) 0.8 K/uL (0.7-4.9); Basophils % 0.1 % (0-1.3); Hematocrit 34.1 % (36.0-45.0); Lymphocytes % 10.8 % (15.3-44.8); MPV 9.4 fL (7.6-11.3)
[2020-04-08 04:52] LABS: Potassium 4.6 mmol/L (3.5-5.1); Thyroid Stimulating Hormone 0.223 uIU/mL (0.360-3.740)
[2020-04-08] MEDS: NACHLORIDE 0.45% 1,000 ML IV SCH (05:34)
[2020-04-08] MEDS: LEVOTHYROXINE SOD 0.05 MG TABLET PO SCH (05:34)
[2020-04-08] MEDS ORDERED: LEVOTHYROXINE SOD 0.125 MG TAB PO SCH (06:30)
--- NOTE | 2020-04-08 07:17 | P.DS ---
Admission Date: 04/07/20 Discharge Date: 04/08/20 Primary Care Provider: Dr. Nelson; Pulmonary-Dr. Schofield Disposition: DC HOME/HOME HEALTH CARE Discharge Condition: GOOD Reason for Admission: SOB Consultations: Pulmonary-Dr. Schofield Procedures: CXR: FINDINGS: Portable technique limits examination quality. The lungs are grossly clear. The heart is normal in size. Small right pleural effusion. ECHO: Medical Problem List: Acute on chronic respiratory failure with hypoxia and hypercapnia secondary to COPD exacerbation complicated with acute on chronic diastolic CHF and small right pleural effusion Hypertension Hypothyroidism Obstructive sleep apnea on CPAP at night Depression Brief History of Present Illness: 74-year-old female with history of COPD, CHF, and hypothyroidism. Patient was a transfer from [facility] for high-level of care. Patient was admitted at their facility on 04/05/2020 due to increasing shortness of breath. She was found to have elevated BNP, pulmonary edema noted on chest x- ray, and elevated CO2 level. The patient was tachypneic with a respiratory rate of 22-28. Patient was on 5 L per nasal cannula. Initial ABG showed a CO2 of 105 and a PO2 of 93 with a bicarb of 41. White count within normal range. Patient was slightly anemic. The patient was admitted to the facility. Patient was treated. Patient's respiratory status declined. Due to her elevated CO2, the hospitalist there spoke to pulmonology. Pulmonology recommended the patient be transferred for high-level of care requiring BiPAP to help with her CO2 retention. The patient was accepted. When I saw the patient in the room, patient appeared stable. She was on nasal cannula. It appears that her breathing has significantly improved. Patient was diuresed at the other facility. Repeat CBC, ABG, chest x-ray pending at this time. Hospital Course: Patient was transferred to our facility due to acute on chronic respiratory failure with hypoxia/hypercapnia. This was related to COPD exacerbation further complicated with acute on chronic diastolic CHF and right small pleural effusion. When the patient arrived to our facility, the patient appeared slightly over diuresed. Pulmonology was consulted to further evaluate. Patient was given IV fluids and IV Diamox. Patient continued with prednisone and COPD treatment. Echocardiogram obtained. At discharge she is without significant shortness of breath. Patient uses home oxygen. At discharge home health and physical therapy will be arranged prior to discharge. At discharge patient will continue with prednisone 10 mg 1 pill twice daily for 5 days then 1 pill once daily for 5 days. The patient will continue with COPD medication. Samples of medication provided by pulmonology. The patient will continue with a 1500 cc p er day fluid restriction and low-salt diet. Patient is to monitor her weight daily. If her weight increases by more than 5 lb she is to contact her PCP or pulmonology for further recommendation. Recommend to recheck lab-BMP within 1 week to monitor her progress. At discharge she will continue with Diamox 1 pill daily. Further adjustment in medication can be done by pulmonology. Education on CHF, pleural effusion and COPD provided. Patient with hypertension. This is remained stable. At discharge she will continue with Norvasc 10 mg daily and benazepril 20 mg daily. Recommend to maintain blood pressure less 150/80. Further adjustment can be done by her PCP. Patient with hypothyroidism. Tsh slightly decrease with normal free T4. Medications have been adjusted. At discharge she will continue with levothyroxine daily. Recommend to recheck tsh and free T4 at with in 4-6 weeks to further monitor and adjust medication. This can be done with the help of her PCP. Patient with severe obstructive sleep apnea. Patient to continue with CPAP at night. This can be further monitored by pulmonology as an outpatient. Patient with depression. At discharge she will continue with Prozac 20 mg daily. Patient with acute on chronic renal disease stage III. Patient appeared over diuresed upon admission. Patient was given IV fluids. Renal ultrasound obtained. Nephrology consulted. Vital Signs/Physical Exam: Temp Pulse Resp BP Pulse Ox 97.5 F 83 20 112/57 L 93 04/08/20 04:00 04/08/20 04:00 04/08/20 04:00 04/08/20 04:00 04/08/20 04:00 General: Alert, In no apparent distress, Oriented x3, Cooperative HEENT: Atraumatic Neck: Supple Respiratory: Clear to auscultation bilaterally, Normal air movement Cardiovascular: Normal pulses, Regular rate/rhythm Gastrointestinal: Normal bowel sounds, Soft and benign, Non-distended, No masses, No rebound, No guarding Integumentary: No tenderness/swelling, No erythema, No warmth, No cyanosis Neurological: Normal speech, Normal strength at 5/5 x4 extr, Normal tone, Normal affect Laboratory Data at Discharge: WBC 7.5 K/uL (4.3-10.9) 04/08/20 03:53 Hgb 11.2 g/dL (12.0-15.0) L 04/08/20 03:53 Hct 34.1 % (36.0-45.0) L 04/08/20 03:53 Plt Count 237 K/uL (152-406) 04/08/20 03:53 PT 12.4 SECONDS (9.5-12.5) 04/07/20 16:01 INR 1.05 04/07/20 16:01 Sodium 139 mmol/L (136-145) 04/08/20 03:53 Potassium 4.6 mmol/L (3.5-5.1) 04/08/20 03:53 BUN 37 mg/dL (7-18) H 04/08/20 03:53 Creatinine 1.52 mg/dL (0.55-1.3) H 04/08/20 03:53 Glucose 120 mg/dL (74-106) H 04/08/20 03:53 Magnesium 2.0 mg/dL (1.8-2.4) 04/08/20 03:53 Troponin I < 0.02 ng/mL (0.0-0.045) 04/07/20 21:53 Triglycerides 121 mg/dL (<150) 04/08/20 03:53 Cholesterol 194 mg/dL (<200) 04/08/20 03:53 HDL Cholesterol 63 mg/dL (40-60) H 04/08/20 03:53 Cholesterol/HDL Ratio 3.08 04/08/20 03:53 Home Medications: Amlodipine [Norvasc*] 10 mg PO DAILY 10/01/15 Benazepril HCl [Lotensin] 20 mg PO DAILY 10/01/15 Fluoxetine HCl [Prozac*] 20 mg PO DAILY 10/01/15 Levothyroxine [Synthroid*] 175 mcg PO [id number] 10/01/15 Cholecalciferol (Vitamin D3) [Vitamin D 400 IU TAB*] 1 tab PO DAILY 04/07/20 Furosemide [Lasix] 40 mg PO DAILY 04/07/20 Hydrocodone/Acetaminophen [[place] 10-325 Tablet] 1 tab PO DAILY 04/07/20 Spironolactone [Aldactone] 25 mg PO DAILY 04/07/20
[2020-04-08] MEDS: INSULIN -REGULAR HUMAN 50 UNIT/0.5 ML ML SQ SCH ×4 (07:30→20:33)
--- NOTE | 2020-04-08 08:02 | P.CNS ---
Date of Consult: 04/08/20 Reason for Consult: ROSA MARIA/ CKD Requesting Physician: Lamonte Booker Primary Care Provider: Dr. Nelson; Pulmonary-Dr. Schofield Chief Complaint: Dyspnea History of Present Illness: 74-year-old female with history of COPD, CHF, and hypothyroidism. Patient was a transfer from [facility] for high-level of care. Patient was admitted at their facility on 04/05/2020 due to increasing shortness of pema th. She was found to have elevated BNP, pulmonary edema noted on chest x-ray, and elevated CO2 level. The patient was tachypneic with a respiratory rate of 22-28. Patient was on 5 L per nasal cannula. Initial ABG showed a CO2 of 105 and a PO2 of 93 with a bicarb of 41. White count within normal range. Patient was slightly anemic. The patient was admitted to the facility. Patient was treated. Patient's respiratory status declined. Due to her elevated CO2, the hospitalist there spoke to pulmonology. Pulmonology recommended the patient be transferred for high-level of care requiring BiPAP to help with her CO2 retention. Limited HPI/ ROS due to unresponsiveness on CPAP. Allergies No Known Allergies Allergy (Verified 09/30/15 20:48) Home medications list reviewed: Yes Home Medications: Amlodipine [Norvasc*] 10 mg PO DAILY 10/01/15 Benazepril HCl [Lotensin] 20 mg PO DAILY 10/01/15 Fluoxetine HCl [Prozac*] 20 mg PO DAILY 10/01/15 Levothyroxine [Synthroid*] 175 mcg PO [id number] 10/01/15 Cholecalciferol (Vitamin D3) [Vitamin D 400 IU TAB*] 1 tab PO DAILY 04/07/20 Furosemide [Lasix] 40 mg PO DAILY 04/07/20 Hydrocodone/Acetaminophen [[place] 10-325 Tablet] 1 tab PO DAILY 04/07/20 Spironolactone [Aldactone] 25 mg PO DAILY 04/07/20 - Past Medical/Surgical History Diabetic: Yes -: Hypertension -: CHF likely diastolic -: Hypothyroidism -: COPD, oxygen dependent -: Depression -: Obstructive sleep apnea -: Tubal ligation -: Appendectomy -: Cholecystectomy Psychosocial/ Personal History: Patient lives at home. - Family History Father Medical History: Heart disease Notes: father of massive heart attack per patient reprt motherr Medical History: Stroke Notes: mother of stroke - Social History Smoking Status: Former smoker Alcohol use: No CD- Drugs: No Caffeine use: Yes Place of Residence: Home Review of Systems is unable to be obtained Physical Examination Temp Pulse Resp BP Pulse Ox 97.5 F 83 20 112/57 L 93 04/08/20 04:00 04/08/20 04:00 04/08/20 04:00 04/08/20 04:00 04/08/20 04:00 General: In no apparent distress HEENT: Atraumatic Neck: Supple, JVD distended Respiratory: Normal air movement, Diminished Cardiovascular: Regular rate/rhythm, Edema Gastrointestinal: Soft and benign, Non-distended Musculoskeletal: No clubbing, No contractures Integumentary: No rashes, No cyanosis Neurological: Abnormal speech, Abnormal tone Lymphatics: No axilla or inguinal lymphadenopathy Laboratory Data (last 24 hrs) 04/08/20 03:53: WBC 7.5, Hgb 11.2 L, Hct 34.1 L, Plt Count 237 04/08/20 03:53: Sodium 139, Potassium 4.6, BUN 37 H, Creatinine 1.52 H, Glucose 120 H, Magnesium 2.0, Triglycerides 121, Cholesterol 194, HDL Cholesterol 63 H, Cholesterol/HDL Ratio 3.08 04/07/20 21:53: Troponin I < 0.02 04/07/20 16:01: PT 12.4, INR 1.05 04/07/20 16:01: Sodium 138, Potassium 4.5, BUN 34 H, Creatinine 1.25, Glucose 168 H, Magnesium 2.0, Troponin I < 0.02 04/07/20 16:01: WBC 6.7, Hgb 11.9 L, Hct 37.5, Plt Count 259 Imagings Data: EXAM DESCRIPTION: RAD - Chest Single View - 04/07/2020 4:34 pm CLINICAL HISTORY: COPD/CHF exacerbation Chest pain. COMPARISON: Chest Single View dated 10/01/2015; Chest Single View dated 09/30/2015; CHEST SINGLE VIEW dated 02/14/2010; CHEST PA AND LAT 2 VIEW dated 05/21/2008 FINDINGS: Portable technique limits examination quality. The lungs are grossly clear. The heart is normal in size. Small right pleural effusion. Conclusions/Impression: A/ ROSA MARIA in the setting of hypotension Alkalosis CKD III HTN with CKD/ CHF complicated by hypotension Acute hypoxic hypercapnic respiratory failure Acute on chronic diastolic CHF WENDY on CPAP DM II with CKD Anemia in chronic illness P/ Continue current POC and Medications. Discontinue IVF. Restart as needed. Encourage nutrition. Increase Diamox TID. Increase holding parameters for antihypertensives. Bipap as ordered. No NSAIDs. AM labs. Daily weight. Thank you kindly for the consultation. Critical Care: Yes (>30)
[2020-04-08] MEDS: ARFORMOTEROL TARTRATE 15 MCG/2 ML VIAL.NEB NEB SCH ×2 (08:17→20:30)
[2020-04-08] MEDS ORDERED: acetaZOLAMIDE 250 MG TAB PO SCH (09:00)
[2020-04-08] MEDS ORDERED: AMLODIPINE 10 MG TAB PO SCH (09:00)
[2020-04-08] MEDS ORDERED: BENAZEPRIL 20 MG TAB PO SCH ×2 (09:00)
--- NOTE | 2020-04-08 09:08 | P.PN ---
Subjective Date of Service: 04/08/20 Primary Care Provider: Dr. Nelson; Pulmonary-Dr. Schofield Chief Complaint: Dyspnea Subjective: Other (Patient on CPAP this morning. Hard to arouse.) Physical Examination - Vital Signs Temperature: 96.9 F Blood Pressure: 106/53 Pulse: 58 Respirations: 19 Pulse Ox (%): 96 - Physical Exam General: Other (Patient slightly alert but confuse. Difficult to arouse) Neck: Supple Respiratory: Clear to auscultation bilaterally, Other (On CPAP) Cardiovascular: Normal pulses Gastrointestinal: No masses, No rebound, No guarding Integumentary: No erythema, No warmth, No cyanosis - Studies Laboratory Data (last 24 hrs) 04/08/20 03:53: WBC 7.5, Hgb 11.2 L, Hct 34.1 L, Plt Count 237 04/08/20 03:53: Sodium 139, Potassium 4.6, BUN 37 H, Creatinine 1.52 H, Glucose 120 H, Magnesium 2.0, Triglycerides 121, Cholesterol 194, HDL Cholesterol 63 H, Cholesterol/HDL Ratio 3.08 04/07/20 21:53: Troponin I < 0.02 04/07/20 16:01: PT 12.4, INR 1.05 04/07/20 16:01: Sodium 138, Potassium 4.5, BUN 34 H, Creatinine 1.25, Glucose 168 H, Magnesium 2.0, Troponin I < 0.02 04/07/20 16:01: WBC 6.7, Hgb 11.9 L, Hct 37.5, Plt Count 259 Medications List Reviewed: Yes Assessment & Plan Discharge Plan: Home Plan to discharge in: 48 Hours Physician Review Additional Text: Impression: Acute on chronic respiratory failure with hypoxia and hypercapnia secondary to COPD exacerbation complicated with acute on chronic diastolic CHF Acute on chronic renal disease stage III Hypertension Hypothyroidism Obstructive sleep apnea Depression Plan: Acute on chronic respiratory failure with hypoxia and hypercapnia secondary to COPD exacerbation complicated with acute on chronic diastolic CHF: Patient reassessed twice this morning. Patient more confused and hard to arouse at this time. Repeat ABG shows CO2 retention. Patient will be switched from CPAP to BiPAP. Will discuss with pulmonology. Continue Diamox. Patient on IV fluids due to likely acute on chronic renal disease. Patient likely recently over diuresed. Will need to discuss further with pulmonology about her CO2 retention. This appeared to happen very quickly. Will reassess and repeat ABG within 1 hr to monitor her progress. Patient likely not able to be discharge today. Acute on chronic renal disease stage III: Nephrology consulted. Await recommendations. Will obtain renal ultrasound. Patient no longer on Lasix and Aldactone. Hypertension: Continue Norvasc and benazepril. Hypothyroidism: Continue medication but will adjust dose according to tsh/free T4. Obstructive sleep apnea: Patient was on CPAP this morning. This will be switched over to BiPAP due to hypercapnia. Depression: Continue with home medication. Time Spent Managing Pts Care (In Minutes): 55
[2020-04-08 09:16] LABS: Arterial Blood Carboxyhemoglob 1.3 % (0-1.5); Blood Gas Oxyhemoglobin 94.5 % (94-97); Blood O2 Saturation 96.8 % (92-98.5)
[2020-04-08] MEDS: FLUOXETINE 20 MG CAP PO SCH (09:51)
[2020-04-08] MEDS: ENOXAPARIN 40 MG/0.4 ML SQ SCH (09:51)
[2020-04-08] MEDS: AMLODIPINE 10 MG TAB PO SCH (09:51)
[2020-04-08] MEDS: predniSONE 10 MG TAB PO SCH (09:51)
[2020-04-08] MEDS: ACETAZOLAMIDE 500 MG IV IV SCH ×3 (09:52→20:32)
[2020-04-08 11:22] LABS: Arterial Blood Carboxyhemoglob 1.3 % (0-1.5); Blood Gas Oxyhemoglobin 92.4 % (94-97); Blood O2 Saturation 94.8 % (92-98.5)
--- NOTE | 2020-04-08 11:24 | ECHO ---
HEIGHT: 5 ft 1 in WEIGHT: 157 lb 0 oz DATE OF STUDY: 04/08/[address]: Lamonte Booker DO 2-DIMENSIONAL: YES M.MODE: YES DOPPLER: YES COLOR FLOW: YES TDS: PORTABLE: DEFINITY: BUBBLE STUDY: DIAGNOSIS: CONGESTIVE HEART FAILURE, CHRONIC OBSTRUCTIVE PULMONARY DISEASE EXACERBATION CARDIAC HISTORY: CATHERIZATION: NO SURGERY: NO PROSTHETIC VALVE: NO PACEMAKER: NO MEASUREMENTS (cm) DIASTOLIC (NORMALS) SYSTOLIC (NORMALS) IVSd 1.0 (0.6-1.2) LA Diam 2.6 (1.9-4.0) LVEF 58% LVIDd 3.2 (3.5-5.7) LVIDs 2.3 (2.0-3.5) %FS 30% LVPWd 1.1 (0.6-1.2) Ao Diam 2.2 (2.0-3.7) 2 DIMENSIONAL ASSESSMENT: RIGHT ATRIUM: NORMAL LEFT ATRIUM: NORMAL RIGHT VENTRICLE: NORMAL LEFT VENTRICLE: NORAML TRICUSPID VALVE: NORMAL MITRAL VALVE: NORMAL PULMONIC VALVE: NORMAL AORTIC VALVE: NORMAL PERICARDIAL EFFUSION: NONE AORTIC ROOT: NORMAL LEFT VENTRICULAR WALL MOTION: NORMAL DOPPLER/COLOR FLOW: NORMAL COMMENTS: NORMAL LEFT VENTRICULAR EJECTION FRACTION AND SIZE. NO WALL MOTION ABNORMALITY. NO EFFUSION. TECHNOLOGIST: JOANIE STOVER
--- NOTE | 2020-04-08 11:44 | P.PN ---
Subjective Date of Service: 04/08/20 Primary Care Provider: Dr. Nelson; Pulmonary-Dr. Schofield Chief Complaint: Altered mental status Patient is has altered mental status today she is still a very hypercapnic compliant with BiPAP saturation satisfactory on room air Review of Systems is unable to be obtained Physical Examination - Vital Signs Temperature: 96.9 F Blood Pressure: 106/53 Pulse: 58 Respirations: 19 Pulse Ox (%): 96 - Physical Exam General: Unresponsive Respiratory: Clear to auscultation bilaterally, Diminished Cardiovascular: No edema, Normal S1 S2 - Studies Laboratory Data (last 24 hrs) 04/08/20 03:53: WBC 7.5, Hgb 11.2 L, Hct 34.1 L, Plt Count 237 04/08/20 03:53: Sodium 139, Potassium 4.6, BUN 37 H, Creatinine 1.52 H, Glucose 120 H, Magnesium 2.0, Triglycerides 121, Cholesterol 194, HDL Cholesterol 63 H, Cholesterol/HDL Ratio 3.08 04/07/20 21:53: Troponin I < 0.02 04/07/20 16:01: PT 12.4, INR 1.05 04/07/20 16:01: Sodium 138, Potassium 4.5, BUN 34 H, Creatinine 1.25, Glucose 168 H, Magnesium 2.0, Troponin I < 0.02 04/07/20 16:01: WBC 6.7, Hgb 11.9 L, Hct 37.5, Plt Count 259 Medications List Reviewed: Yes Assessment & Plan - Problems (Diagnosis) (1) Respiratory failure with hypoxia and hypercapnia Current Visit: No Status: Acute Plan: Admitted with respiratory failure I suspect patient has severe COPD very heavy active smoker maximize bronchodilator therapy continue with IV fluids Diamox renal function is worse Dc Joey inhibitors change to IV Solu-Medrol Qualifiers: Chronicity: acute on chronic Qualified Code(s): J96.21 - Acute and chronic respiratory failure with hypoxia (2) Sleep apnea Current Visit: Yes Status: Acute Plan: Compliant with CPAP at home Physician Review Additional Text: Impression: Acute on chronic respiratory failure with hypoxia and hypercapnia secondary to COPD exacerbation complicated with acute on chronic diastolic CHF Acute on chronic renal disease stage III Hypertension Hypothyroidism Obstructive sleep apnea Depression Plan: Acute on chronic respiratory failure with hypoxia and hypercapnia secondary to COPD exacerbation complicated with acute on chronic diastolic CHF: Patient reassessed twice this morning. Patient more confused and hard to arouse at this time. Repeat ABG shows CO2 retention. Patient will be switched from CPAP to BiPAP. Will discuss with pulmonology. Continue Diamox. Patient on IV fluids due to likely acute on chronic renal disease. Patient likely recently over diuresed. Will need to discuss further with pulmonology about her CO2 retention. This appeared to happen very quickly. Will reassess and repeat ABG within 1 hr to monitor her progress. Patient likely not able to be discharge today. Acute on chronic renal disease stage III: Nephrology consulted. Await recommendations. Will obtain renal ultrasound. Patient no longer on Lasix and Aldactone. Hypertension: Continue Norvasc and benazepril. Hypothyroidism: Continue medication but will adjust dose according to tsh/free T4. Obstructive sleep apnea: Patient was on CPAP this morning. This will be switched over to BiPAP due to hypercapnia. Depression: Continue with home medication.
--- NOTE | 2020-04-08 12:01 | RAD REPORT ---
EXAM DESCRIPTION: US - Renal Ultrasound-Complete - 04/08/2020 11:52 am CLINICAL HISTORY: acute on chronic renal disease Flank pain COMPARISON: Renal Ultrasound-Complete dated 09/20/2018 FINDINGS: Both kidneys are echogenic. The right kidney measures 11.0 x 5.9 x 5.1 cm. No hydronephrosis, focal mass or perinephric fluid. The left kidney measures 9.0 x 4.6 x 4.4 cm. No hydronephrosis, focal mass or perinephric fluid. Benign bilateral renal cysts are seen, unchanged since comparative study. The largest cyst measures 5 .5 cm on the left. The urinary bladder is incompletely distended without gross abnormality seen. IMPRESSION: Bilateral echogenic kidneys are noted compatible with underlying medical renal disease. Benign bilateral renal cysts are present, unchanged since comparative study.
[2020-04-08] MEDS: METHYLPREDNISOLONE 40 MG INJ IV SCH ×2 (12:26→17:08)
[2020-04-08] MEDS: NYSTATIN PWDR 100000 UNIT/GM TOP SCH ×2 (12:26→20:32)
[2020-04-08 12:27] LABS: Arterial Blood Carboxyhemoglob 1.4 % (0-1.5); Blood Gas Oxyhemoglobin 90.2 % (94-97); Blood O2 Saturation 92.2 % (92-98.5)
[2020-04-08] MEDS ORDERED: ENSURE HIGH PROTEIN 237 ML CAN PO SCH (15:00)
[2020-04-09] MEDS: METHYLPREDNISOLONE 40 MG INJ IV SCH (01:03)
[2020-04-09 01:05] VITALS: TEMP 97.8
[2020-04-09 04:36] LABS: Absolute Lymphocytes (CBC) 0.6 K/uL (0.7-4.9); Basophils % 0.2 % (0-1.3); Hematocrit 36.4 % (36.0-45.0); Lymphocytes % 8.7 % (15.3-44.8); MPV 9.8 fL (7.6-11.3)
[2020-04-09 04:49] LABS: Magnesium 2.3 mg/dL (1.8-2.4); Phosphorus 4.1 mg/dL (2.5-4.9); Potassium 4.4 mmol/L (3.5-5.1); Uric Acid 8.7 mg/dL (2.6-6.0)
[2020-04-09 05:20] LABS: Blood Morphology Comment NOT SEEN (NOT SEEN); Platelet Estimate ADEQ
[2020-04-09] MEDS: LEVOTHYROXINE SOD 0.05 MG TABLET PO SCH (05:22)
--- NOTE | 2020-04-09 07:28 | P.PN ---
Subjective Date of Service: 04/09/20 Primary Care Provider: Dr. Nelson; Pulmonary-Dr. Schofield Chief Complaint: Dyspnea Subjective: Other (Patient alert this morning. Still or on BiPAP.) Physical Examination - Vital Signs Temperature: 97.8 F Blood Pressure: 113/59 Pulse: 55 Respirations: 20 Pulse Ox (%): 98 - Physical Exam General: Alert, In no apparent distress, Cooperative HEENT: Atraumatic Neck: Supple Respiratory: Other (Currently on BiPAP. Better air movement bilateral) Cardiovascular: Normal pulses, Regular rate/rhythm Gastrointestinal: Normal bowel sounds, No tenderness, No masses, No rebound, No guarding Neurological: Normal speech, Normal strength at 5/5 x4 extr, Normal tone, Normal affect - Studies Laboratory Data (last 24 hrs) 04/09/20 04:16: Sodium 139, Potassium 4.4, BUN 37 H, Creatinine 1.07, Glucose 124 H, Uric Acid 8.7 H, Phosphorus 4.1, Magnesium 2.3 04/09/20 04:16: WBC 6.6, Hgb 11.5 L, Hct 36.4, Plt Count 233 Medications List Reviewed: Yes Assessment & Plan Discharge Plan: Home (With possible hospice at discharge versus home health and physical therapy) Plan to discharge in: 24 Hours Physician Review Additional Text: Impression: Acute on chronic respiratory failure with hypoxia and hypercapnia secondary to COPD exacerbation complicated with acute on chronic diastolic CHF Acute on chronic renal disease stage III Hypertension Hypothyroidism Obstructive sleep apnea Depression Plan: Acute on chronic respiratory failure with hypoxia and hypercapnia secondary to COPD exacerbation complicated with acute on chronic diastolic CHF: Patient appears improved with BiPAP. CO2 also improved. Continue IV steroid. Patient on IV Diamox is well. Continue to wean off BiPAP. Will need to discuss with family about advanced care planning. Family reported that hospice was to be arranged at discharge from other hospital. Will have physical therapy assess ambulation. Will need to consider hospice at discharge or home health. Await further recommendations from pulmonology. Anticipate continued improvement over the next 2 days. Patient may require nicotine patch as daughter reports patient still smokes. Will address tobacco cessation. Anticipate possible discharge in the next 1-2 days with improvement. including plan of care Patient reassessed twice this morning. Patient more confused and hard to arouse at this time. Repeat ABG shows CO2 retention. Patient will be switched from CPAP to BiPAP. Will discuss with pulmonology. Continue Diamox. Patient on IV fluids due to likely acute on chronic renal disease. Patient likely recently over diuresed. Will need to discuss further with pulmonology about her CO2 retention. This appeared to happen very quickly. Will reassess and repeat ABG within 1 hr to monitor her progress. Patient likely not able to be discharge today. Acute on chronic renal disease stage III: Patient off Lasix and Aldactone. Patient on IV Diamox. Renal function improved. Patient no longer on the AKOSUA- inhibitor. Continue with recommendations. Hypertension: Continue Norvasc. AKOSUA-inhibitor discontinued due to acute on chronic renal disease. Will continue to monitor and adjust medication. Hypothyroidism: Continue medication. Obstructive sleep apnea: Patient currently on BiPAP. Patient uses CPAP at home. Depression: Continue with home medication. Time Spent Managing Pts Care (In Minutes): 55
[2020-04-09] MEDS: INSULIN -REGULAR HUMAN 50 UNIT/0.5 ML ML SQ SCH ×2 (07:30→11:45)
[2020-04-09] MEDS: ARFORMOTEROL TARTRATE 15 MCG/2 ML VIAL.NEB NEB SCH (08:30)
--- NOTE | 2020-04-09 08:43 | P.PN ---
Subjective Date of Service: 04/09/20 Primary Care Provider: Dr. Nelson; Pulmonary-Dr. Schofield Chief Complaint: Respiratory failure patient is doing much better today she is very alert responsive cooperative no new complaints Review of Systems 10-point ROS is otherwise unremarkable General: Weakness Respiratory: Shortness of Breath Physical Examination - Vital Signs Temperature: 97.8 F Blood Pressure: 113/59 Pulse: 55 Respirations: 20 Pulse Ox (%): 98 - Physical Exam General: Alert, Oriented x3 Neck: Supple Respiratory: Clear to auscultation bilaterally Cardiovascular: No edema, Normal S1 S2 - Studies Laboratory Data (last 24 hrs) 04/09/20 04:16: Sodium 139, Potassium 4.4, BUN 37 H, Creatinine 1.07, Glucose 124 H, Uric Acid 8.7 H, Phosphorus 4.1, Magnesium 2.3 04/09/20 04:16: WBC 6.6, Hgb 11.5 L, Hct 36.4, Plt Count 233 Medications List Reviewed: Yes Assessment & Plan - Problems (Diagnosis) (1) Sleep apnea Current Visit: Yes Status: Acute Plan: Compliant with CPAP at home (2) Respiratory failure with hypoxia and hypercapnia Current Visit: No Status: Acute Plan: patient admitted with acute on chronic respiratory failure she has chronic respiratory failure persistently hypercapnic will qualify for noninvasive ventilator in addition patient also has severe underlying COPD patient has chronic respiratory failure secondary to COPD and needs non invest invasive positive pressure ventilation to prevent hospital readmission patient will bend benefit from trilogy volume ventilator for nocturnal and daytime uses needed reduce the risk of hospitalization form BiPAP is insufficient due to the severit y of her condition patient is stable for discharge she will need a long-acting bronchodilator in addition to low-dose steroids I have asked the patient to cigar packer and picker samples of bronchodilators from my office patient will also benefit from about 1 L of nasal cannula oxygen Qualifiers: Chronicity: acute on chronic Qualified Code(s): J96.21 - Acute and chronic respiratory failure with hypoxia Physician Review Additional Text: Impression: Acute on chronic respiratory failure with hypoxia and hypercapnia secondary to COPD exacerbation complicated with acute on chronic diastolic CHF Acute on chronic renal disease stage III Hypertension Hypothyroidism Obstructive sleep apnea Depression Plan: Acute on chronic respiratory failure with hypoxia and hypercapnia secondary to COPD exacerbation complicated with acute on chronic diastolic CHF: Patient appears improved with BiPAP. CO2 also improved. Continue IV steroid. Patient on IV Diamox is well. Continue to wean off BiPAP. Will need to discuss with family about advanced care planning. Family reported that hospice was to be arranged at discharge from other hospital. Will have physical therapy assess ambulation. Will need to consider hospice at discharge or home health. Await further recommendations from pulmonology. Anticipate continued improvement over the next 2 days. Patient may require nicotine patch as daughter reports patient still smokes. Will address tobacco cessation. Anticipate possible discharge in the next 1-2 days with improvement. including plan of care Patient reassessed twice this morning. Patient more confused and hard to arouse at this time. Repeat ABG shows CO2 retention. Patient will be switched from CPAP to BiPAP. Will discuss with pulmonology. Continue Diamox. Patient on IV fluids due to likely acute on chronic renal disease. Patient likely recently over diuresed. Will need to discuss further with pulmonology about her CO2 retention. This appeared to happen very quickly. Will reassess and repeat ABG within 1 hr to monitor her progress. Patient likely not able to be discharge today. Acute on chronic renal disease stage III: Patient off Lasix and Aldactone. Patient on IV Diamox. Renal function improved. Patient no longer on the AKOSUA- inhibitor. Continue with recommendations. Hypertension: Continue Norvasc. AKOSUA-inhibitor discontinued due to acute on chronic renal disease. Will continue to monitor and adjust medication. Hypothyroidism: Continue medication. Obstructive sleep apnea: Patient currently on BiPAP. Patient uses CPAP at home. Depression: Continue with home medication.
[2020-04-09] MEDS: ACETAZOLAMIDE 500 MG IV IV SCH (08:57)
[2020-04-09] MEDS: AMLODIPINE 10 MG TAB PO SCH (08:58)
[2020-04-09] MEDS: FLUOXETINE 20 MG CAP PO SCH (08:58)
[2020-04-09] MEDS: NYSTATIN PWDR 100000 UNIT/GM TOP SCH (08:58)
[2020-04-09] MEDS ORDERED: predniSONE 20 MG TAB PO SCH (09:00)
[2020-04-09] MEDS ORDERED: ENOXAPARIN 30 MG/0.3 ML SQ SCH (09:00)
[2020-04-09] MEDS ORDERED: ENOXAPARIN 40 MG/0.4 ML SQ SCH (09:00)
[2020-04-09 11:02] LABS: Arterial Blood Carboxyhemoglob 1.5 % (0-1.5); Blood Gas Oxyhemoglobin 87.2 % (94-97); Blood O2 Saturation 89.5 % (92-98.5)
[2020-04-09 12:59] VITALS: BP 90/45
--- NOTE | 2020-04-09 13:48 | P.DS ---
Admission Date: 04/08/20 Discharge Date: 04/09/20 Primary Care Provider: Dr. Nelson; Pulmonary-Dr. Schofield Disposition: HOSPICE-HOME Discharge Condition: GOOD Reason for Admission: Respiratory failure Consultations: Pulmonary-Dr. Schofield Nephrology-Dr. Terrazas Procedures: Impression: Acute on chronic respiratory failure with hypoxia and hypercapnia secondary to COPD exacerbation complicated with acute on chronic diastolic CHF Acute on chronic renal disease stage III Hypertension Hypothyroidism Obstructive sleep apnea Depression Brief History of Present Illness: 74-year-old female with multiple medical problems with end-stage COPD presented to the emergency room with increasing shortness of breath. Patient found to have acute on chronic respiratory failure with hypercapnia. Patient was admitted for further evaluation and treatment. Hospital Course: Patient presented with acute on chronic respiratory failure with hypoxia and hypercapnia secondary to COPD exacerbation complicated with acute on chronic diastolic CHF. Patient required BiPAP during the course of her stay. Her condition improved slowly. Adjustments in diuretic therapy were made. Patient seen by nephrology and pulmonology. Advanced care planning address in detail with the patient. Patient desires hospice. Hospice arrangements have been made. Patient also required non invasive ventilator at discharge. At discharge she is without significant shortness of breath. Patient has significantly improved with baseline mentation. Prior discharge patient will receive non invasive ventilator at home as recommended by pulmonology. At discharge patient will also continue with prednisone 20 mg 1 pill twice daily for 5 days then 1 pill once daily for 5 days. New medication includes Brovana 1 unit dose twice daily for COPD and albuterol 1 unit dose 3 times a day as needed for shortness of breath. Patient may follow up with pulmonology. Further adjustment in medication can be done by hospice. As mentioned above patient with acute on chronic diastolic CHF. Patient has done well. Diuretic therapy was adjusted during the course of her stay by pulmonology and nephrology. At discharge patient will continue with a 1500 cc per day fluid restriction and low-salt diet. Recommend to monitor her weight daily. If her weight increases by more than 5 lb she is to contact pulmonology or hospice to further address. Patient will no longer take Lasix or Aldactone. Patient will continue with Diamox 250 mg daily. This is to help with her CHF and hypercapnia. This medication may need to be further monitored and addressed. Patient with hypertension. This has remained stable. At discharge she may continue with Norvasc 10 mg daily and benazepril 20 mg daily. Recommend to maintain blood pressure less 150/80. Further adjustment can be done by her PCP. Recommend to hold blood pressure medication if systolic less than 110. Patient with depression. At discharge she may continue with Prozac 20 mg daily. Patient with hypothyroidism. At discharge she may continue with Levoxyl 175 mcg daily. Patient with chronic pain. She may continue with her pain medication as directed. Further adjustment in medication can be done by hospice. Vital Signs/Physical Exam: Temp Pulse Resp BP Pulse Ox 97.8 F 90 17 90/45 L 93 04/09/20 12:00 04/09/20 12:00 04/09/20 12:00 04/09/20 12:00 04/09/20 12:00 General: Alert, In no apparent distress, Oriented x3, Cooperative HEENT: Atraumatic Neck: Supple Respiratory: Expiratory wheezes (Some wheezing noted. On 3 L per nasal cannula) Cardiovascular: Normal pulses, Regular rate/rhythm Gastrointestinal: Normal bowel sounds, Soft and benign, Non-distended, No tenderness, No masses, No rebound, No guarding Musculoskeletal: No erythema, No tenderness, No warmth Integumentary: No erythema, No warmth, No cyanosis Neurological: Normal speech, Normal strength at 5/5 x4 extr, Normal tone, Normal affect Laboratory Data at Discharge: WBC 6.6 K/uL (4.3-10.9) 04/09/20 04:16 Hgb 11.5 g/dL (12.0-15.0) L 04/09/20 04:16 Hct 36.4 % (36.0-45.0) 04/09/20 04:16 Plt Count 233 K/uL (152-406) 04/09/20 04:16 PT 12.4 SECONDS (9.5-12.5) 04/07/20 16:01 INR 1.05 04/07/20 16:01 Sodium 139 mmol/L (136-145) 04/09/20 04:16 Potassium 4.4 mmol/L (3.5-5.1) 04/09/20 04:16 BUN 37 mg/dL (7-18) H 04/09/20 04:16 Creatinine 1.07 mg/dL (0.55-1.3) 04/09/20 04:16 Glucose 124 mg/dL (74-106) H 04/09/20 04:16 Uric Acid 8.7 mg/dL (2.6-6.0) H 04/09/20 04:16 Phosphorus 4.1 mg/dL (2.5-4.9) 04/09/20 04:16 Magnesium 2.3 mg/dL (1.8-2.4) 04/09/20 04:16 Troponin I < 0.02 ng/mL (0.0-0.045) 04/07/20 21:53 Triglycerides 121 mg/dL (<150) 04/08/20 03:53 Cholesterol 194 mg/dL (<200) 04/08/20 03:53 HDL Cholesterol 63 mg/dL (40-60) H 04/08/20 03:53 Cholesterol/HDL Ratio 3.08 04/08/20 03:53 Home Medications: Amlodipine [Norvasc*] 10 mg PO DAILY 10/01/15 Benazepril HCl [Lotensin] 20 mg PO DAILY 10/01/15 Fluoxetine HCl [Prozac*] 20 mg PO DAILY 10/01/15 Levothyroxine [Synthroid*] 175 mcg PO [id number] 10/01/15 Cholecalciferol (Vitamin D3) [Vitamin D 400 IU TAB*] 1 tab PO DAILY 04/07/20 Hydrocodone/Acetaminophen [[place] 10-325 Tablet] 1 tab PO DAILY 04/07/20 Albuterol Neb [Proventil 0.083% Neb Soln] 3 ml IH TID PRN #90 amp 04/09/20 Arformoterol Tartrate [Brovana] 2 ml IH BID #60 vial 04/09/20 acetaZOLAMIDE [Diamox*] 250 mg PO DAILY #30 tab 04/09/20 predniSONE [Prednisone*] 20 mg PO SEECOM #15 tab 04/09/20 New Medications: Arformoterol Tartrate [Brovana] 2 ml IH BID #60 vial acetaZOLAMIDE [Diamox*] 250 mg PO DAILY #30 tab predniSONE [Prednisone*] 20 mg PO SEECOM #15 tab Albuterol Neb [Proventil 0.083% Neb Soln] 3 ml IH TID PRN #90 amp PRN Reason: Shortness Of Breath Patient Discharge Instructions: 1. Patient presented with acute on chronic respiratory failure with hypercapnia related to COPD exacerbation and acute on chronic CHF. Patient seen by pulmonology. Patient has done well. Patient now at 3 L per nasal cannula. Advance care planning addressed. Patient and family desire hospice at home. This has been arranged. Prior discharge patient will also receive non invasive ventilator as recommended by pulmonology. At discharge patient will also continue with prednisone 20 mg 1 pill twice daily for 5 days then 1 pill once daily for 5 days. New medication includes Brovana 1 unit dose twice daily for COPD and albuterol 1 unit dose 3 times a day as needed for shortness of breath. Patient may follow up with pulmonology. Further adjustment in medication can be done by hospice. 3. As mentioned above patient with acute on chronic CHF. At discharge patient will continue with a 1500 cc per day fluid restriction and low-salt diet. Recommend to monitor her weight daily. If her weight increases by more than 5 lb she is to contact pulmonology or hospice to further address. Patient will no longer take Lasix or Aldactone. Patient will continue with Diamox 250 mg daily. This is to help with her CHF and hypercapnia. This medication may need to be further monitored and addressed. 4. Patient with hypertension. This has remained stable. At discharge she may continue with Norvasc 10 mg daily and benazepril 20 mg daily. Recommend to maintain blood pressure less 150/80. Further adjustment can be done by her PCP. Recommend to hold blood pressure medication if systolic less than 110. 5. Patient with depression. At discharge she may continue with Prozac 20 mg daily. 6. Patient with hypothyroidism. At discharge she may continue with Levoxyl 175 mcg daily. 7. Patient with chronic pain. She may continue with her pain medication as directed. Further adjustment in medication can be done by hospice. Diet: AHA Activity: Fall precautions Time spent managing pt's care (in minutes): 55
[2020-04-09] MEDS ORDERED: acetaZOLAMIDE 250 MG TAB PO SCH (14:00)
--- NOTE | 2020-04-09 14:04 | PN ---
Date of Progress Note: 04/09/2020 Subjective: The patient was seen and examined. She is doing better she says this morning. Denies a ny shortness of breath. Physical Examination: Vital Signs: At this time are showing temperature of 97.8, pulse rate of 55, respiratory rate of 20, and blood pressure 113/59. General: She appears in no acute distress. HEENT: Shows atraumatic head. Lungs: Auscultation of the lungs revealed diminished breath sounds at bilateral bases with no muslim itious sounds appreciated. Extremities: Showed no evidence of edema. Laboratory Data: Has been reviewed in detail. Creatinine is stable at 1.07, bicarb of 40. CBC show ing stable hemoglobin, hematocrit, and platelet count. Current Medications: Include acetazolamide 250 mg IV t.i.d., amlodipine 10 mg a day, levothyroxine, and prednisone 20 mg b.i.d. Impression: 1.Alkalosis secondary to metabolic alkalosis from diuresis. The patient is currently on acetazolami de to help with diuresis and also to help with alkalosis. We will continue the acetazolamide and mon itor. 2.Acute on chronic respiratory failure with hypoxia and hypercapnia. The patient is being treated f or chronic obstructive pulmonary disease and is currently also on intermittent by BiPAP. The plan is to discharge her on hospice therapy per Dr. Booker note. 3.Hypertension, currently stable. 4.Obstructive sleep apnea. 5.Hypothyroidism, on levothyroxine. Plan: The patient continues to have severe alkalosis. We will continue with acetazolamide and monit or renal function closely. Creatinine is otherwise stable. We will continue to monitor. VV/MODL Voice ID: [id number] Report ID: [id number]
[2020-04-09 14:18] VITALS: O2SAT 93
[2020-04-10] MEDS ORDERED: LEVOTHYROXINE SOD 0.075 MG TAB PO SCH (06:30)
[2020-04-10] MEDS ORDERED: LEVOTHYROXINE SOD 0.1 MG TAB PO SCH (06:30)
== END 2020-04-09 15:29 | disposition hospice, home (50) | DRG 189 ==
LOC: INTOOBSV 15:09 → 2ND 15:09 → OBSVTOIN 15:09
PROVIDERS: ADMIT Family Medicine; ATTEND Family Medicine
PROC: 5A09457 Assistance with Respiratory Ventilation, 24-96 Consecutive Hours, Continuous Positive Airway Pressure (ICD-10-PCS; principal; 2020-04-07)
DX: J96.22 Acute and chronic respiratory failure with hypercapnia (principal); I50.33 Acute on chronic diastolic (congestive) heart failure; I13.0 Hypertensive heart and chronic kidney disease with heart failure and stage 1 through stage 4 chronic kidney disease, or unspecified chronic kidney disease; J44.1 Chronic obstructive pulmonary disease with (acute) exacerbation; N17.9 Acute kidney failure, unspecified; E87.3 Alkalosis; J96.21 Acute and chronic respiratory failure with hypoxia; E03.9 Hypothyroidism, unspecified; F32.9 Major depressive disorder, single episode, unspecified; F17.200 Nicotine dependence, unspecified, uncomplicated; D63.8 Anemia in other chronic diseases classified elsewhere; G47.33 Obstructive sleep apnea (adult) (pediatric); N18.30 Chronic kidney disease, stage 3 unspecified; E11.22 Type 2 diabetes mellitus with diabetic chronic kidney disease; Z79.890 Hormone replacement therapy; Z79.52 Long term (current) use of systemic steroids; Z79.899 Other long term (current) drug therapy; Z99.81 Dependence on supplemental oxygen; Z98.51 Tubal ligation status; Z90.49 Acquired absence of other specified parts of digestive tract; Z66 Do not resuscitate
CPT/HCPCS: 36415; 71045; 76770; 80048; 80061; 82550; 82553; 82805; 82947; 83036; 83735; 83880; 84100; 84439; 84443; 84484; 84550; 85025; 85610; 93306; 94660; 94760; 97112; 97161; 97530; G0378; G0379; J1120; J1650; J2920; J7512; J7605